=== PATIENT | male | born 1945 | race Caucasian/White ===

== ENCOUNTER 2018-01-10 11:45 | Inpatient (IN) | payer OTHER ==
[2018-01-10] MEDS: LIDOCAINE 2%/EPI MPF (SDV) 20 ML VIAL INJ (19:53)
[2018-01-10] MEDS: morphine 4 MG/ML VIAL IV (20:04)
[2018-01-10] MEDS: ONDANSETRON 4 MG INJ IV (20:04)
[2018-01-10 20:12] LABS: ADD MAN DIFF? NO
[2018-01-10 20:15] LABS: WHITE BLOOD COUNT 7.5 10^3/ul (4.8-10.8)
[2018-01-10 20:15] LABS: BASOPHIL # 0.1 10^3/ul (0.0-0.1); BASOPHILS % 1.2 % (0.0-2.0); EOSINOPHILS # 0.2 10^3/ul (0.0-0.5); EOSINOPHILS % 3.1 % (0.0-7.0); HEMATOCRIT 42.3 % (42.0-52.0); HEMOGLOBIN 13.6 g/dl (14.0-18.0); LYMPHOCYTES # 2.2 10^3/ul (0.8-2.9); LYMPHOCYTES % 29.3 % (15.0-51.0); MEAN CORPUSCULAR HEMOGLOBIN 26.9 pg (29.0-33.0); MEAN CORPUSCULAR HGB CONC 32.2 g/dl (32.0-37.0); MEAN CORPUSCULAR VOLUME 83.8 fl (82.0-101.0); MEAN PLATELET VOLUME 9.3 fl (7.4-10.4); MONOCYTES % 13.4 % (0.0-11.0); NEUTROPHILS % 52.5 % (39.0-77.0); PLATELET COUNT 170 10^3/UL (140-415); RED BLOOD COUNT 5.05 10^6/ul (4.70-6.10); RED CELL DISTRIBUTION WIDTH 17.4 % (11.5-14.5)
[2018-01-10 20:33] LABS: PROTIME 15.4 Sec (11.9-14.9); PT RATIO 1.2
[2018-01-10 20:34] LABS: PARTIAL THROMBOPLASTIN TIME 34.1 Sec (25.0-35.0)
[2018-01-10 20:36] LABS: ALANINE AMINOTRANSFERASE 7 IU/L (13-69); ALBUMIN/GLOBULIN RATIO 0.95; ALKALINE PHOSPHATASE 133 IU/L (42-121); ASPARTATE AMINO TRANSFERASE 29 IU/L (15-46); BILIRUBIN,INDIRECT 0.2 mg/dl (0-1.1); BILIRUBIN,TOTAL 0.2 mg/dl (0.2-1.3); BLOOD UREA NITROGEN 19 mg/dl (7-20); CALCIUM 9.5 mg/dl (8.4-10.2); CARBON DIOXIDE 31 mmol/L (21-31); CHLORIDE 100 mmol/L (97-110); CREATININE 0.84 mg/dl (0.61-1.24); GLUCOSE 149 mg/dl (70-220); LIPASE 333 U/L (23-300); SODIUM 141 mmol/L (135-144); TOTAL PROTEIN 8.2 g/dl (6.1-8.1)
[2018-01-10 20:48] LABS: TROPONIN-I 0.029 ng/ml (0.00-0.12)
[2018-01-10 20:53] LABS: ANION GAP 14 (8-16); POTASSIUM 3.6 mmol/L (3.5-5.1)
[2018-01-10] MEDS: DILTIAZEM 25 MG INJ IV (20:56)
[2018-01-10] MEDS ORDERED: ACETAMINOPHEN 325 MG TAB PO (21:00)
[2018-01-10] MEDS ORDERED: ONDANSETRON 4 MG INJ IV (21:00)
[2018-01-10] MEDS: DILTIAZEM 30 MG TAB PO (21:25)
[2018-01-11] MEDS ORDERED: ONDANSETRON 4 MG INJ IV (01:30)
[2018-01-11] MEDS ORDERED: NACL 0.9% 3 ML SYG IV (01:30)
[2018-01-11] MEDS ORDERED: GLUCOSE GEL 15 GRAM TUBE BUCCAL (02:00)
[2018-01-11] MEDS ORDERED: GLUCOSE GEL 15 GRAM TUBE PO ×2 (02:00)
[2018-01-11] MEDS ORDERED: DEXTROSE 50% 50 ML SYRINGE IV ×2 (02:00)
[2018-01-11] MEDS ORDERED: GLUCAGON 1 MG INJ IM (02:00)
[2018-01-11 02:01] LABS: CREATINE KINASE 67 IU/L (23-200)
[2018-01-11] MEDS: ACCU-CHEK XX (02:05)
[2018-01-11 02:14] LABS: CK INDEX 3.2; TROPONIN-I 0.036 ng/ml (0.00-0.12)
[2018-01-11 02:21] LABS: CK-MB 2.16 ng/ml (0.0-2.4)
[2018-01-11 04:56] LABS: ADD MAN DIFF? NO
[2018-01-11 05:01] LABS: WHITE BLOOD COUNT 8.9 10^3/ul (4.8-10.8)
[2018-01-11 05:02] LABS: BASOPHIL # 0.1 10^3/ul (0.0-0.1); EOSINOPHILS # 0.2 10^3/ul (0.0-0.5); EOSINOPHILS % 1.8 % (0.0-7.0); HEMATOCRIT 43.8 % (42.0-52.0); HEMOGLOBIN 13.7 g/dl (14.0-18.0); LYMPHOCYTES # 1.7 10^3/ul (0.8-2.9); LYMPHOCYTES % 18.8 % (15.0-51.0); MEAN CORPUSCULAR HEMOGLOBIN 26.4 pg (29.0-33.0); MEAN CORPUSCULAR HGB CONC 31.3 g/dl (32.0-37.0); MEAN CORPUSCULAR VOLUME 84.4 fl (82.0-101.0); MEAN PLATELET VOLUME 9.9 fl (7.4-10.4); MONOCYTE # 1.1 10^3/ul (0.3-0.9); MONOCYTES % 12.3 % (0.0-11.0); NEUTROPHIL # 5.8 10^3/ul (1.6-7.5); NEUTROPHILS % 65.9 % (39.0-77.0); PLATELET COUNT 186 10^3/UL (140-415); RED BLOOD COUNT 5.19 10^6/ul (4.70-6.10); RED CELL DISTRIBUTION WIDTH 16.9 % (11.5-14.5)
[2018-01-11 05:42] LABS: CREATINE KINASE 64 IU/L (23-200)
[2018-01-11 05:48] LABS: ALANINE AMINOTRANSFERASE 12 IU/L (13-69); ALBUMIN 3.6 g/dl (3.3-4.9); ALBUMIN/GLOBULIN RATIO 0.97; ALKALINE PHOSPHATASE 119 IU/L (42-121); ANION GAP 15 (8-16); ASPARTATE AMINO TRANSFERASE 26 IU/L (15-46); BILIRUBIN,INDIRECT 0.3 mg/dl (0-1.1); BILIRUBIN,TOTAL 0.3 mg/dl (0.2-1.3); BLOOD UREA NITROGEN 22 mg/dl (7-20); CALCIUM 9.4 mg/dl (8.4-10.2); CARBON DIOXIDE 29 mmol/L (21-31); CHLORIDE 101 mmol/L (97-110); CREATININE 0.88 mg/dl (0.61-1.24); GLUCOSE 140 mg/dl (70-220); MAGNESIUM 1.7 mg/dl (1.7-2.5); POTASSIUM 4.4 mmol/L (3.5-5.1); SODIUM 141 mmol/L (135-144); TOTAL PROTEIN 7.3 g/dl (6.1-8.1)
[2018-01-11 05:54] LABS: CK INDEX 3.1; TROPONIN-I 0.028 ng/ml (0.00-0.12)
[2018-01-11 06:13] LABS: CK-MB 1.97 ng/ml (0.0-2.4)
[2018-01-11] MEDS: FUROSEMIDE 40 MG INJ IV (07:21)
[2018-01-11] MEDS: INSULIN ASPART [NOVOLOG] 3 ML PEN SC ×4 (08:00→21:00)
[2018-01-11] MEDS: FUROSEMIDE 20 MG INJ IV (09:00)
[2018-01-11] MEDS ORDERED: LISINOPRIL PO (09:00)
[2018-01-11] MEDS: ENOXAPARIN 40 MG/0.4 ML SYG SC (09:08)
[2018-01-11] MEDS: METOPROLOL 25 MG TAB PO ×2 (09:08→20:32)
[2018-01-11] MEDS: FAMOTIDINE 20 MG TAB PO ×2 (09:09→20:30)
[2018-01-11] MEDS: INSULIN GLARGINE [LANtus] 3 ML PEN SC (09:13)
[2018-01-11] MEDS: ASPIRIN 81 MG TAB PO (09:51)
[2018-01-11] MEDS: ALBUMIN HUMAN 25% 50 ML IV ×2 (09:51→17:38)
[2018-01-11] MEDS: ATORVASTATIN 20 MG TAB PO (20:30)
[2018-01-11] MEDS: LORAZEPAM 0.5 MG TAB PO (23:33)
[2018-01-12] MEDS: LORAZEPAM 0.5 MG TAB PO ×2 (00:10→11:51)
[2018-01-12] MEDS ORDERED: AMIODARONE 900 MG in DEXTROSE 5% 482 ML IV (01:30)
[2018-01-12] MEDS: AMIODARONE 150MG/D5W BOLUS 100 ML IV ×2 (01:40→02:28)
[2018-01-12] MEDS: ACCU-CHEK XX (02:00)
[2018-01-12] MEDS: AMIODARONE 900 MG in DEXTROSE 5% 482 ML IV (02:58)
[2018-01-12 05:21] LABS: ADD MAN DIFF? NO
[2018-01-12 05:31] LABS: BASOPHIL # 0.1 10^3/ul (0.0-0.1); EOSINOPHILS # 0.1 10^3/ul (0.0-0.5); EOSINOPHILS % 1.3 % (0.0-7.0); HEMATOCRIT 44.9 % (42.0-52.0); HEMOGLOBIN 14.3 g/dl (14.0-18.0); LYMPHOCYTES # 2.4 10^3/ul (0.8-2.9); LYMPHOCYTES % 24.3 % (15.0-51.0); MEAN CORPUSCULAR HEMOGLOBIN 26.5 pg (29.0-33.0); MEAN CORPUSCULAR HGB CONC 31.8 g/dl (32.0-37.0); MEAN CORPUSCULAR VOLUME 83.1 fl (82.0-101.0); MEAN PLATELET VOLUME 9.7 fl (7.4-10.4); MONOCYTE # 1.1 10^3/ul (0.3-0.9); MONOCYTES % 11.2 % (0.0-11.0); NEUTROPHILS % 61.8 % (39.0-77.0); PLATELET COUNT 170 10^3/UL (140-415); RED CELL DISTRIBUTION WIDTH 17.8 % (11.5-14.5)
[2018-01-12 05:31] LABS: WHITE BLOOD COUNT 9.7 10^3/ul (4.8-10.8)
[2018-01-12] MEDS: FUROSEMIDE 40 MG INJ IV (05:49)
[2018-01-12 05:52] LABS: AMMONIA 58 umol/l (9-30)
[2018-01-12 05:54] LABS: CHOLESTEROL 106 mg/dl (100-200)
[2018-01-12 05:54] LABS: CHOL/HDL RATIO 3.9 RATIO; HDL CHOLESTEROL 27 mg/dl (31-75); LDL CHOLESTEROL,CALCULATED 63 mg/dl; TRIGLYCERIDES 80 mg/dl (0-149)
[2018-01-12 05:55] LABS: ANION GAP 15 (8-16); BLOOD UREA NITROGEN 30 mg/dl (7-20); CALCIUM 9.6 mg/dl (8.4-10.2); CARBON DIOXIDE 28 mmol/L (21-31); CHLORIDE 100 mmol/L (97-110); CREATININE 0.98 mg/dl (0.61-1.24); GLUCOSE 126 mg/dl (70-220); MAGNESIUM 1.6 mg/dl (1.7-2.5); PHOSPHORUS 4.4 mg/dl (2.5-4.9); POTASSIUM 4.5 mmol/L (3.5-5.1); SODIUM 138 mmol/L (135-144)
[2018-01-12] MEDS: LEVALBUTEROL (NEB) 0.63 MG/3 ML AMP HHN ×2 (06:15→19:41)
[2018-01-12] MEDS ORDERED: SUCCINYLCHOLINE CHLORIDE 100 MG/5 ML SYG IV (07:00)
[2018-01-12] MEDS: INSULIN ASPART [NOVOLOG] 3 ML PEN SC ×4 (07:52→21:00)
[2018-01-12 08:11] LABS: B-TYPE NATRIURETIC PEPTIDE 5740 PG/ML (0-125)
[2018-01-12 08:43] LABS: ADD UMIC YES; UR ASCORBIC ACID 40 mg/dL (NEGATIVE); UR BACTERIA FEW /HPF (NONE SEEN); UR BILIRUBIN (Dip) 1+ mg/dL (NEGATIVE); UR BLOOD (Dip) NEGATIVE (NEGATIVE); UR CLARITY CLEAR (CLEAR); UR COLOR AMBER (YELLOW); UR GLUCOSE (Dip) NEGATIVE (NEGATIVE); UR HYALINE CAST FEW /HPF (NONE SEEN); UR KETONES (Dip) NEGATIVE (NEGATIVE); UR LEUKOCYTE ESTERASE (Dip) NEGATIVE Leu/ul (NEGATIVE); UR MUCUS FEW /HPF (NONE SEEN); UR NITRITE (Dip) NEGATIVE (NEGATIVE); UR RBC 1 /HPF (0-5); UR TOTAL PROTEIN (Dip) 1+ mg/dl (NEGATIVE); UR UROBILINOGEN (Dip) 2+ mg/dL (NEGATIVE); UR WBC 1 /HPF (0-5)
[2018-01-12] MEDS: MAGNESIUM SULFATE 2 GM/50 ML 50 ML IVPB (08:47)
[2018-01-12] MEDS: FAMOTIDINE 20 MG TAB PO ×2 (08:47→20:20)
[2018-01-12] MEDS: ASPIRIN 81 MG TAB PO (08:47)
[2018-01-12] MEDS: SPIRONOLACTONE 25 MG TAB PO (08:47)
[2018-01-12] MEDS: LACTULOSE 30ML CUP PO ×3 (08:54→22:56)
[2018-01-12] MEDS: ENOXAPARIN 40 MG/0.4 ML SYG SC (08:59)
[2018-01-12] MEDS: INSULIN GLARGINE [LANtus] 3 ML PEN SC (08:59)
[2018-01-12] MEDS: METOPROLOL 25 MG TAB PO ×2 (09:00→11:05)
[2018-01-12 13:15] LABS: HEMOGLOBIN A1C 6.7 % (0-5.9)
[2018-01-12] MEDS: LORAZEPAM 2 MG INJ IV (14:03)
[2018-01-12] MEDS: DIPHENHYDRAMINE 50 MG INJ IV (16:36)
[2018-01-12] MEDS: SOD CHLORIDE 0.9% 1,000 ML IV (18:59)
[2018-01-12 19:01] LABS: AADO2 Arterial 71.8 mmHg (7.0-24.0); Allen Test ACCEPTAB; Arterial Base Excess -16.2 mmol/L (-3.0-3); Arterial COHb 0.8 % (0.0-3.0); Arterial Fraction of Oxyhgb 91.9 % (93.0-99.0); Arterial HCO3 13.4 mmol/L (22.0-26.0); Arterial MetHb 0.4 % (0.0-1.5); Arterial Total Hemglobin 14.8 g/dl (12.0-18.0); Arterial pCO2 45.4 mmhg (35-45); MODE NASAL CANNULA; Site Right Radial
[2018-01-12 19:32] LABS: ADD MAN DIFF? NO
[2018-01-12 19:40] LABS: ABNORMAL IP MESSAGE 1; BASOPHILS % 0.2 % (0.0-2.0); EOSINOPHILS % 0.1 % (0.0-7.0); HEMATOCRIT 45.5 % (42.0-52.0); HEMOGLOBIN 13.8 g/dl (14.0-18.0); LYMPHOCYTES # 0.7 10^3/ul (0.8-2.9); LYMPHOCYTES % 5.6 % (15.0-51.0); MEAN CORPUSCULAR HEMOGLOBIN 26.7 pg (29.0-33.0); MEAN CORPUSCULAR HGB CONC 30.3 g/dl (32.0-37.0); MEAN CORPUSCULAR VOLUME 88.2 fl (82.0-101.0); MEAN PLATELET VOLUME 10.2 fl (7.4-10.4); MONOCYTE # 1.7 10^3/ul (0.3-0.9); MONOCYTES % 13.1 % (0.0-11.0); NEUTROPHIL # 10.3 10^3/ul (1.6-7.5); NEUTROPHILS % 79.6 % (39.0-77.0); NUCLEATED RED BLOOD CELLS% 0.2 /100WBC (0.0-0.0); PLATELET COUNT 190 10^3/UL (140-415); POSITIVE DIFF @See below; RED BLOOD COUNT 5.16 10^6/ul (4.70-6.10); RED CELL DISTRIBUTION WIDTH 17.1 % (11.5-14.5)
[2018-01-12 19:40] LABS: WHITE BLOOD COUNT 12.9 10^3/ul (4.8-10.8)
[2018-01-12] MEDS: IPRATROPIUM (NEB) 0.5 MG/2.5 ML AMP HHN (19:41)
[2018-01-12 19:55] LABS: AMMONIA 178 umol/l (9-30)
[2018-01-12 20:03] LABS: ALANINE AMINOTRANSFERASE 21 IU/L (13-69); ALBUMIN 4.9 g/dl (3.3-4.9); ALBUMIN/GLOBULIN RATIO 1.28; ALKALINE PHOSPHATASE 129 IU/L (42-121); ANION GAP 34 (8-16); BILIRUBIN,INDIRECT 1.1 mg/dl (0-1.1); BLOOD UREA NITROGEN 33 mg/dl (7-20); CALCIUM 9.6 mg/dl (8.4-10.2); CARBON DIOXIDE 16 mmol/L (21-31); CHLORIDE 96 mmol/L (97-110); CREATININE 1.94 mg/dl (0.61-1.24); GLUCOSE 73 mg/dl (70-220); POTASSIUM 4.2 mmol/L (3.5-5.1); SODIUM 142 mmol/L (135-144); TOTAL PROTEIN 8.7 g/dl (6.1-8.1)
[2018-01-12] MEDS: PROPOFOL 100 ML IV ×2 (20:16→21:48)
[2018-01-12] MEDS: NA BICARBONATE 8.4% 50 ML SYG IV (20:17)
[2018-01-12] MEDS: ATORVASTATIN 20 MG TAB PO (20:20)
[2018-01-12 20:23] LABS: ASPARTATE AMINO TRANSFERASE 580 IU/L (15-46)
[2018-01-12] MEDS ORDERED: SODIUM BICARBONATE (IV ADD) 150 MEQ in DEXTROSE 5% 850 ML IV (20:30)
[2018-01-12 20:58] LABS: LACTIC ACID 15.1 mmol/L (0.5-2.0)
[2018-01-12 21:34] LABS: AADO2 Arterial 383.9 mmHg (7.0-24.0); Allen Test ACCEPTAB; Arterial Base Excess -9.8 mmol/L (-3.0-3); Arterial Blood Gas Oxygen Sat 99.5 mmHG (95.0-100.0); Arterial COHb 0.5 % (0.0-3.0); Arterial Fraction of Oxyhgb 98.5 % (93.0-99.0); Arterial HCO3 17.4 mmol/L (22.0-26.0); Arterial MetHb 0.5 % (0.0-1.5); Arterial Total Hemglobin 13.9 g/dl (12.0-18.0); Arterial pCO2 42.7 mmhg (35-45); MODE VENT - AC; Site Right Radial
[2018-01-12 21:48] LABS: B-TYPE NATRIURETIC PEPTIDE 13500 PG/ML (0-125)
[2018-01-12] MEDS ORDERED: LORAZEPAM 2 MG INJ IV (22:00)
[2018-01-12] MEDS: DIGOXIN 500 MCG INJ IV (22:54)
[2018-01-12] MEDS: SODIUM BICARBONATE (IV ADD) 150 MEQ in DEXTROSE 5% 850 ML IV (23:18)
[2018-01-13] MEDS: ACCU-CHEK XX (02:00)
[2018-01-13] MEDS: PROPOFOL 100 ML IV ×3 (03:44→16:50)
[2018-01-13] MEDS: AMIODARONE 900 MG in DEXTROSE 5% 482 ML IV (03:51)
[2018-01-13] MEDS: LACTULOSE 30ML CUP PO ×3 (05:24→21:30)
[2018-01-13] MEDS: FUROSEMIDE 40 MG INJ IV ×2 (05:24→13:58)
[2018-01-13] MEDS: FAMOTIDINE 20 MG INJ IV ×2 (05:24→08:50)
[2018-01-13 05:48] LABS: ADD MAN DIFF? NO
[2018-01-13 05:55] LABS: WHITE BLOOD COUNT 13.5 10^3/ul (4.8-10.8)
[2018-01-13 05:55] LABS: BASOPHILS % 0.1 % (0.0-2.0); HEMATOCRIT 36.7 % (42.0-52.0); HEMOGLOBIN 12.3 g/dl (14.0-18.0); LYMPHOCYTES # 1.3 10^3/ul (0.8-2.9); LYMPHOCYTES % 9.5 % (15.0-51.0); MEAN CORPUSCULAR HEMOGLOBIN 27.3 pg (29.0-33.0); MEAN CORPUSCULAR HGB CONC 33.5 g/dl (32.0-37.0); MEAN CORPUSCULAR VOLUME 81.6 fl (82.0-101.0); MEAN PLATELET VOLUME 10.2 fl (7.4-10.4); MONOCYTE # 0.9 10^3/ul (0.3-0.9); MONOCYTES % 6.4 % (0.0-11.0); NEUTROPHIL # 11.3 10^3/ul (1.6-7.5); NEUTROPHILS % 83.3 % (39.0-77.0); NUCLEATED RED BLOOD CELLS% 0.2 /100WBC (0.0-0.0); PLATELET COUNT 180 10^3/UL (140-415); RED CELL DISTRIBUTION WIDTH 17.6 % (11.5-14.5)
[2018-01-13 06:09] LABS: CREATINE KINASE 180 IU/L (23-200)
[2018-01-13 06:13] LABS: ALBUMIN 3.5 g/dl (3.3-4.9); ANION GAP 20 (8-16); BLOOD UREA NITROGEN 45 mg/dl (7-20); CALCIUM 8.8 mg/dl (8.4-10.2); CARBON DIOXIDE 25 mmol/L (21-31); CHLORIDE 96 mmol/L (97-110); CREATININE 1.62 mg/dl (0.61-1.24); GLUCOSE 220 mg/dl (70-220); MAGNESIUM 1.9 mg/dl (1.7-2.5); PHOSPHORUS 4.7 mg/dl (2.5-4.9); POTASSIUM 4.1 mmol/L (3.5-5.1); SODIUM 137 mmol/L (135-144)
[2018-01-13 06:21] LABS: AMMONIA 36 umol/l (9-30)
[2018-01-13 06:23] LABS: CK INDEX 3.1; TROPONIN-I 0.073 ng/ml (0.00-0.12)
[2018-01-13 06:29] LABS: CK-MB 5.56 ng/ml (0.0-2.4)
[2018-01-13 07:49] LABS: AADO2 Arterial 239.3 mmHg (7.0-24.0); Allen Test ACCEPTAB; Arterial Base Excess 4.2 mmol/L (-3.0-3); Arterial Blood Gas Oxygen Sat 95.7 mmHG (95.0-100.0); Arterial COHb 0.3 % (0.0-3.0); Arterial Fraction of Oxyhgb 95.1 % (93.0-99.0); Arterial HCO3 26.9 mmol/L (22.0-26.0); Arterial MetHb 0.3 % (0.0-1.5); Arterial Total Hemglobin 13.7 g/dl (12.0-18.0); Arterial pCO2 34.3 mmhg (35-45); MODE VENT - AC; Site Right Radial
[2018-01-13] MEDS: SPIRONOLACTONE 25 MG TAB PO (08:48)
[2018-01-13] MEDS: ENOXAPARIN 80 MG/0.8 ML SYG SC (08:52)
[2018-01-13] MEDS: INSULIN ASPART [NOVOLOG] 3 ML PEN SC ×4 (08:52→21:31)
[2018-01-13] MEDS: INSULIN GLARGINE [LANtus] 3 ML PEN SC (08:53)
[2018-01-13] MEDS: PIPER-TAZO 3.375 GM IV (PMX) 100 ML IVPB ×2 (10:16→13:58)
[2018-01-13] MEDS ORDERED: MAGNESIUM SULFATE 1 GM/D5W 100 ML IVPB (11:30)
[2018-01-13 11:45] LABS: LACTIC ACID 3.6 mmol/L (0.5-2.0)
[2018-01-13] MEDS: MAGNESIUM SULFATE 1 GM/D5W 100 ML IVPB (11:49)
[2018-01-13] MEDS ORDERED: VANCOMYCIN IV PER PHARMACY XX (15:30)
[2018-01-13 16:33] LABS: LACTIC ACID 2.5 mmol/L (0.5-2.0)
[2018-01-13] MEDS: VANCOMYCIN 2 GM in DEXTROSE 5% 500 ML IVPB (17:44)
[2018-01-13] MEDS: LEVALBUTEROL (HFA) 15 GM INHALER INH (20:30)
[2018-01-13] MEDS: IPRATROPIUM (HFA) 12.9 GM INHALER INH (21:13)
[2018-01-13] MEDS: CEFEPIME 2GM/50 ML (PMX) 50 ML IVPB (21:30)
[2018-01-14] MEDS: PROPOFOL 100 ML IV ×4 (01:15→21:09)
[2018-01-14] MEDS: LEVALBUTEROL (HFA) 15 GM INHALER INH ×4 (01:34→19:48)
[2018-01-14] MEDS: IPRATROPIUM (HFA) 12.9 GM INHALER INH ×4 (01:34→19:49)
[2018-01-14] MEDS: ACCU-CHEK XX (02:00)
[2018-01-14 05:46] LABS: ADD MAN DIFF? NO
[2018-01-14 05:51] LABS: BASOPHILS % 0.2 % (0.0-2.0); EOSINOPHILS % 0.1 % (0.0-7.0); HEMATOCRIT 37.2 % (42.0-52.0); HEMOGLOBIN 12.5 g/dl (14.0-18.0); LYMPHOCYTES # 1.4 10^3/ul (0.8-2.9); LYMPHOCYTES % 10.1 % (15.0-51.0); MEAN CORPUSCULAR HGB CONC 33.6 g/dl (32.0-37.0); MEAN CORPUSCULAR VOLUME 80.3 fl (82.0-101.0); MEAN PLATELET VOLUME 9.9 fl (7.4-10.4); MONOCYTE # 0.7 10^3/ul (0.3-0.9); MONOCYTES % 5.2 % (0.0-11.0); NEUTROPHIL # 11.3 10^3/ul (1.6-7.5); NUCLEATED RED BLOOD CELLS # 0.1 10^3/ul (0.0-0.0); NUCLEATED RED BLOOD CELLS% 0.4 /100WBC (0.0-0.0); PLATELET COUNT 216 10^3/UL (140-415); RED BLOOD COUNT 4.63 10^6/ul (4.70-6.10); RED CELL DISTRIBUTION WIDTH 18.1 % (11.5-14.5)
[2018-01-14 05:51] LABS: WHITE BLOOD COUNT 13.5 10^3/ul (4.8-10.8)
[2018-01-14] MEDS: FUROSEMIDE 40 MG INJ IV ×2 (05:53→18:00)
[2018-01-14] MEDS: LACTULOSE 30ML CUP PO ×3 (05:53→22:02)
[2018-01-14 06:11] LABS: ANION GAP 9 (8-16); BLOOD UREA NITROGEN 50 mg/dl (7-20); CALCIUM 8.9 mg/dl (8.4-10.2); CARBON DIOXIDE 34 mmol/L (21-31); CHLORIDE 97 mmol/L (97-110); CREATININE 1.26 mg/dl (0.61-1.24); GLUCOSE 133 mg/dl (70-220); MAGNESIUM 2.1 mg/dl (1.7-2.5); PHOSPHORUS 2.2 mg/dl (2.5-4.9); POTASSIUM 3.4 mmol/L (3.5-5.1); SODIUM 137 mmol/L (135-144)
[2018-01-14] MEDS: INSULIN ASPART [NOVOLOG] 3 ML PEN SC ×4 (07:35→21:00)
[2018-01-14 07:56] LABS: AADO2 Arterial 207.1 mmHg (7.0-24.0); Allen Test ACCEPTAB; Arterial Base Excess 9.2 mmol/L (-3.0-3); Arterial Blood Gas Oxygen Sat 97.7 mmHG (95.0-100.0); Arterial COHb 0.2 % (0.0-3.0); Arterial Fraction of Oxyhgb 97.2 % (93.0-99.0); Arterial HCO3 33.1 mmol/L (22.0-26.0); Arterial MetHb 0.3 % (0.0-1.5); Arterial Total Hemglobin 14.1 g/dl (12.0-18.0); Arterial pCO2 41.8 mmhg (35-45); MODE VENT - AC; Site Right Radial
[2018-01-14] MEDS: INSULIN GLARGINE [LANtus] 3 ML PEN SC (08:02)
[2018-01-14] MEDS: ENOXAPARIN 80 MG/0.8 ML SYG SC (08:52)
[2018-01-14] MEDS: FAMOTIDINE 20 MG INJ IV (08:52)
[2018-01-14] MEDS: SPIRONOLACTONE 25 MG TAB PO (08:52)
[2018-01-14] MEDS: CEFEPIME 2GM/50 ML (PMX) 50 ML IVPB ×2 (08:55→21:04)
[2018-01-14] MEDS ORDERED: VANCOMYCIN 1 GM 250 ML IVPB (18:00)
[2018-01-14] MEDS ORDERED: VANCOMYCIN 1.25 GM in SOD CHLORIDE 0.9% 250 ML IVPB (18:00)
[2018-01-14] MEDS: POTASSIUM PHOSPHATE 20 MEQ in SOD CHLORIDE 0.9% 250 ML IVPB (20:19)
[2018-01-15] MEDS: ACCU-CHEK XX (02:00)
[2018-01-15] MEDS: LEVALBUTEROL (HFA) 15 GM INHALER INH ×4 (02:00→19:36)
[2018-01-15] MEDS: IPRATROPIUM (HFA) 12.9 GM INHALER INH ×4 (02:00→19:36)
[2018-01-15] MEDS: PROPOFOL 100 ML IV ×4 (02:18→23:21)
[2018-01-15 04:24] LABS: ADD MAN DIFF? NO
[2018-01-15 04:36] LABS: BASOPHILS % 0.3 % (0.0-2.0); EOSINOPHILS # 0.1 10^3/ul (0.0-0.5); EOSINOPHILS % 1.3 % (0.0-7.0); HEMATOCRIT 41.4 % (42.0-52.0); HEMOGLOBIN 13.4 g/dl (14.0-18.0); LYMPHOCYTES # 1.3 10^3/ul (0.8-2.9); LYMPHOCYTES % 15.5 % (15.0-51.0); MEAN CORPUSCULAR HEMOGLOBIN 26.9 pg (29.0-33.0); MEAN CORPUSCULAR HGB CONC 32.4 g/dl (32.0-37.0); MEAN PLATELET VOLUME 10.5 fl (7.4-10.4); MONOCYTE # 0.8 10^3/ul (0.3-0.9); MONOCYTES % 9.4 % (0.0-11.0); NEUTROPHIL # 6.3 10^3/ul (1.6-7.5); NUCLEATED RED BLOOD CELLS # 0.1 10^3/ul (0.0-0.0); NUCLEATED RED BLOOD CELLS% 0.7 /100WBC (0.0-0.0); PLATELET COUNT 182 10^3/UL (140-415); POSITIVE DIFF @See below; RED BLOOD COUNT 4.99 10^6/ul (4.70-6.10); RED CELL DISTRIBUTION WIDTH 18.6 % (11.5-14.5)
[2018-01-15 04:49] LABS: ALANINE AMINOTRANSFERASE 22 IU/L (13-69); ALBUMIN 3.3 g/dl (3.3-4.9); ALBUMIN/GLOBULIN RATIO 0.97; ALKALINE PHOSPHATASE 110 IU/L (42-121); ANION GAP 11 (8-16); BILIRUBIN,INDIRECT 0.4 mg/dl (0-1.1); BILIRUBIN,TOTAL 0.4 mg/dl (0.2-1.3); BLOOD UREA NITROGEN 30 mg/dl (7-20); CALCIUM 8.7 mg/dl (8.4-10.2); CARBON DIOXIDE 35 mmol/L (21-31); CHLORIDE 100 mmol/L (97-110); CREATININE 0.82 mg/dl (0.61-1.24); GLUCOSE 139 mg/dl (70-220); POTASSIUM 3.4 mmol/L (3.5-5.1); SODIUM 143 mmol/L (135-144); TOTAL PROTEIN 6.7 g/dl (6.1-8.1)
[2018-01-15 04:59] LABS: ASPARTATE AMINO TRANSFERASE 779 IU/L (15-46)
[2018-01-15 05:05] LABS: AADO2 Arterial 74.9 mmHg (7.0-24.0); Allen Test ACCEPTAB; Arterial Blood Gas Oxygen Sat 96.1 mmHG (95.0-100.0); Arterial COHb 0.7 % (0.0-3.0); Arterial Fraction of Oxyhgb 95.1 % (93.0-99.0); Arterial MetHb 0.3 % (0.0-1.5); Arterial Total Hemglobin 14.1 g/dl (12.0-18.0); MODE VENT - AC; Site Right Radial
[2018-01-15 05:14] LABS: WHITE BLOOD COUNT 8.6 10^3/ul (4.8-10.8)
[2018-01-15] MEDS: LACTULOSE 30ML CUP PO ×2 (06:15→20:25)
[2018-01-15] MEDS: FUROSEMIDE 40 MG INJ IV ×2 (06:15→18:00)
[2018-01-15] MEDS: INSULIN ASPART [NOVOLOG] 3 ML PEN SC ×4 (07:35→20:22)
[2018-01-15] MEDS: INSULIN GLARGINE [LANtus] 3 ML PEN SC (07:53)
[2018-01-15] MEDS: FAMOTIDINE 20 MG INJ IV (08:29)
[2018-01-15] MEDS: CEFEPIME 2GM/50 ML (PMX) 50 ML IVPB ×2 (08:30→20:25)
[2018-01-15] MEDS: SPIRONOLACTONE 25 MG TAB PO (08:30)
[2018-01-15] MEDS: ENOXAPARIN 80 MG/0.8 ML SYG SC (08:31)
[2018-01-15] MEDS: POTASSIUM CHLORIDE 20 MEQ POWDER FOR ORAL SOLN NGT (09:36)
[2018-01-16] MEDS: IPRATROPIUM (HFA) 12.9 GM INHALER INH ×2 (01:52→07:27)
[2018-01-16] MEDS: LEVALBUTEROL (HFA) 15 GM INHALER INH ×2 (01:53→07:27)
[2018-01-16] MEDS: ACCU-CHEK XX (01:59)
[2018-01-16] MEDS: DEXMEDETOMIDINE HCL 200 MCG in SOD CHLORIDE 0.9% 48 ML IV ×4 (04:01→10:00)
[2018-01-16 04:56] LABS: ADD MAN DIFF? NO
[2018-01-16 05:06] LABS: BASOPHILS % 0.4 % (0.0-2.0); EOSINOPHILS # 0.1 10^3/ul (0.0-0.5); EOSINOPHILS % 1.4 % (0.0-7.0); HEMATOCRIT 42.8 % (42.0-52.0); LYMPHOCYTES # 1.7 10^3/ul (0.8-2.9); LYMPHOCYTES % 18.9 % (15.0-51.0); MEAN CORPUSCULAR HEMOGLOBIN 26.8 pg (29.0-33.0); MEAN CORPUSCULAR HGB CONC 32.7 g/dl (32.0-37.0); MEAN PLATELET VOLUME 9.9 fl (7.4-10.4); MONOCYTES % 10.5 % (0.0-11.0); NEUTROPHIL # 6.2 10^3/ul (1.6-7.5); NEUTROPHILS % 68.1 % (39.0-77.0); NUCLEATED RED BLOOD CELLS% 0.2 /100WBC (0.0-0.0); PLATELET COUNT 215 10^3/UL (140-415); RED BLOOD COUNT 5.22 10^6/ul (4.70-6.10); RED CELL DISTRIBUTION WIDTH 17.8 % (11.5-14.5)
[2018-01-16 05:06] LABS: WHITE BLOOD COUNT 9.1 10^3/ul (4.8-10.8)
[2018-01-16 05:26] LABS: LACTIC ACID 1.6 mmol/L (0.5-2.0)
[2018-01-16 05:32] LABS: ANION GAP 12 (8-16); BLOOD UREA NITROGEN 23 mg/dl (7-20); CALCIUM 8.9 mg/dl (8.4-10.2); CARBON DIOXIDE 36 mmol/L (21-31); CHLORIDE 98 mmol/L (97-110); CREATININE 0.79 mg/dl (0.61-1.24); GLUCOSE 125 mg/dl (70-220); MAGNESIUM 1.6 mg/dl (1.7-2.5); POTASSIUM 3.4 mmol/L (3.5-5.1); SODIUM 143 mmol/L (135-144)
[2018-01-16] MEDS: FUROSEMIDE 40 MG INJ IV ×2 (05:56→19:48)
[2018-01-16] MEDS: LORAZEPAM 2 MG INJ IV (07:31)
[2018-01-16] MEDS: INSULIN ASPART [NOVOLOG] 3 ML PEN SC ×4 (07:35→21:00)
[2018-01-16] MEDS: MAGNESIUM SULFATE 2 GM/50 ML 50 ML IVPB (07:44)
[2018-01-16] MEDS: INSULIN GLARGINE [LANtus] 3 ML PEN SC (07:50)
[2018-01-16] MEDS: CEFEPIME 2GM/50 ML (PMX) 50 ML IVPB ×2 (08:30→20:50)
[2018-01-16] MEDS: FAMOTIDINE 20 MG INJ IV (08:30)
[2018-01-16] MEDS: LACTULOSE 30ML CUP PO ×2 (09:31→21:00)
[2018-01-16] MEDS: ENOXAPARIN 80 MG/0.8 ML SYG SC (09:33)
[2018-01-16] MEDS: SPIRONOLACTONE 25 MG TAB PO (09:37)
[2018-01-16] MEDS: POTASSIUM CHLORIDE 100 ML IVPB ×2 (11:26→13:30)
[2018-01-16] MEDS: DIPHENHYDRAMINE 50 MG INJ IV (19:48)
[2018-01-16] MEDS: IPRATROPIUM (NEB) 0.5 MG/2.5 ML AMP HHN (19:55)
[2018-01-16] MEDS: LEVALBUTEROL (NEB) 0.63 MG/3 ML AMP HHN (19:55)
[2018-01-17] MEDS: ACCU-CHEK XX (02:00)
[2018-01-17] MEDS: IPRATROPIUM (NEB) 0.5 MG/2.5 ML AMP HHN ×4 (02:33→19:52)
[2018-01-17] MEDS: LEVALBUTEROL (NEB) 0.63 MG/3 ML AMP HHN ×4 (02:34→19:53)
[2018-01-17 05:44] LABS: ADD MAN DIFF? NO
[2018-01-17] MEDS: FUROSEMIDE 40 MG INJ IV ×2 (05:57→17:04)
[2018-01-17 05:58] LABS: WHITE BLOOD COUNT 10.7 10^3/ul (4.8-10.8)
[2018-01-17 05:58] LABS: BASOPHIL # 0.1 10^3/ul (0.0-0.1); BASOPHILS % 0.6 % (0.0-2.0); EOSINOPHILS # 0.1 10^3/ul (0.0-0.5); HEMATOCRIT 46.4 % (42.0-52.0); HEMOGLOBIN 14.5 g/dl (14.0-18.0); LYMPHOCYTES # 2.6 10^3/ul (0.8-2.9); LYMPHOCYTES % 24.7 % (15.0-51.0); MEAN CORPUSCULAR HEMOGLOBIN 26.2 pg (29.0-33.0); MEAN CORPUSCULAR HGB CONC 31.3 g/dl (32.0-37.0); MEAN CORPUSCULAR VOLUME 83.8 fl (82.0-101.0); MONOCYTE # 1.4 10^3/ul (0.3-0.9); MONOCYTES % 13.2 % (0.0-11.0); NEUTROPHIL # 6.4 10^3/ul (1.6-7.5); NEUTROPHILS % 59.5 % (39.0-77.0); PLATELET COUNT 225 10^3/UL (140-415); RED BLOOD COUNT 5.54 10^6/ul (4.70-6.10); RED CELL DISTRIBUTION WIDTH 17.5 % (11.5-14.5)
[2018-01-17 06:17] LABS: ALANINE AMINOTRANSFERASE 21 IU/L (13-69); ALBUMIN 3.9 g/dl (3.3-4.9); ALBUMIN/GLOBULIN RATIO 0.86; ALKALINE PHOSPHATASE 126 IU/L (42-121); ANION GAP 13 (8-16); ASPARTATE AMINO TRANSFERASE 329 IU/L (15-46); BILIRUBIN,INDIRECT 1.1 mg/dl (0-1.1); BILIRUBIN,TOTAL 1.2 mg/dl (0.2-1.3); BLOOD UREA NITROGEN 31 mg/dl (7-20); CALCIUM 9.5 mg/dl (8.4-10.2); CARBON DIOXIDE 35 mmol/L (21-31); CHLORIDE 100 mmol/L (97-110); CREATININE 0.91 mg/dl (0.61-1.24); GLUCOSE 81 mg/dl (70-220); SODIUM 144 mmol/L (135-144); TOTAL PROTEIN 8.4 g/dl (6.1-8.1)
[2018-01-17] MEDS: INSULIN ASPART [NOVOLOG] 3 ML PEN SC ×4 (07:35→20:43)
[2018-01-17] MEDS: FAMOTIDINE 20 MG INJ IV (08:23)
[2018-01-17] MEDS: CEFEPIME 2GM/50 ML (PMX) 50 ML IVPB ×2 (08:23→22:30)
[2018-01-17] MEDS: SPIRONOLACTONE 25 MG TAB PO (08:23)
[2018-01-17] MEDS: LACTULOSE 30ML CUP PO ×2 (08:24→20:43)
[2018-01-17] MEDS: ENOXAPARIN 80 MG/0.8 ML SYG SC (08:27)
[2018-01-17] MEDS: INSULIN GLARGINE [LANtus] 3 ML PEN SC (08:33)
[2018-01-17] MEDS: METOPROLOL 5 MG INJ IV (11:51)
[2018-01-17] MEDS: ACETAMINOPHEN 325 MG TAB PO (13:54)
[2018-01-17] MEDS: METOPROLOL 25 MG TAB PO (20:43)
[2018-01-18] MEDS: ACETAMINOPHEN 325 MG TAB PO (00:34)
[2018-01-18] MEDS: LEVALBUTEROL (NEB) 0.63 MG/3 ML AMP HHN ×4 (01:41→20:06)
[2018-01-18] MEDS: IPRATROPIUM (NEB) 0.5 MG/2.5 ML AMP HHN ×4 (01:41→20:05)
[2018-01-18] MEDS: ACCU-CHEK XX (02:00)
[2018-01-18] MEDS: FUROSEMIDE 40 MG INJ IV ×2 (05:33→17:03)
[2018-01-18 07:21] LABS: ADD MAN DIFF? NO
[2018-01-18 07:27] LABS: ABNORMAL IP MESSAGE 1; BASOPHIL # 0.1 10^3/ul (0.0-0.1); BASOPHILS % 0.5 % (0.0-2.0); EOSINOPHILS # 0.3 10^3/ul (0.0-0.5); EOSINOPHILS % 2.7 % (0.0-7.0); HEMATOCRIT 43.7 % (42.0-52.0); HEMOGLOBIN 13.7 g/dl (14.0-18.0); LYMPHOCYTES # 2.2 10^3/ul (0.8-2.9); LYMPHOCYTES % 19.7 % (15.0-51.0); MEAN CORPUSCULAR HEMOGLOBIN 26.1 pg (29.0-33.0); MEAN CORPUSCULAR HGB CONC 31.4 g/dl (32.0-37.0); MEAN CORPUSCULAR VOLUME 83.4 fl (82.0-101.0); MEAN PLATELET VOLUME 9.7 fl (7.4-10.4); MONOCYTE # 1.6 10^3/ul (0.3-0.9); MONOCYTES % 14.6 % (0.0-11.0); NEUTROPHIL # 6.8 10^3/ul (1.6-7.5); NEUTROPHILS % 61.5 % (39.0-77.0); PLATELET COUNT 217 10^3/UL (140-415); POSITIVE DIFF @See below; RED BLOOD COUNT 5.24 10^6/ul (4.70-6.10); RED CELL DISTRIBUTION WIDTH 17.1 % (11.5-14.5)
[2018-01-18 07:43] LABS: ALANINE AMINOTRANSFERASE 14 IU/L (13-69); ALBUMIN 3.7 g/dl (3.3-4.9); ALBUMIN/GLOBULIN RATIO 0.84; ALKALINE PHOSPHATASE 122 IU/L (42-121); ANION GAP 10 (8-16); ASPARTATE AMINO TRANSFERASE 171 IU/L (15-46); BILIRUBIN,INDIRECT 1.1 mg/dl (0-1.1); BILIRUBIN,TOTAL 1.1 mg/dl (0.2-1.3); BLOOD UREA NITROGEN 32 mg/dl (7-20); CALCIUM 9.4 mg/dl (8.4-10.2); CARBON DIOXIDE 37 mmol/L (21-31); CHLORIDE 96 mmol/L (97-110); CREATININE 0.86 mg/dl (0.61-1.24); GLUCOSE 90 mg/dl (70-220); MAGNESIUM 1.7 mg/dl (1.7-2.5); POTASSIUM 3.4 mmol/L (3.5-5.1); SODIUM 140 mmol/L (135-144); TOTAL PROTEIN 8.1 g/dl (6.1-8.1)
[2018-01-18] MEDS: INSULIN ASPART [NOVOLOG] 3 ML PEN SC ×4 (07:55→21:00)
[2018-01-18] MEDS: METOPROLOL 25 MG TAB PO ×2 (08:14→23:41)
[2018-01-18] MEDS: LACTULOSE 30ML CUP PO ×2 (08:14→23:40)
[2018-01-18] MEDS: SPIRONOLACTONE 25 MG TAB PO (08:14)
[2018-01-18] MEDS: FAMOTIDINE 20 MG INJ IV (08:15)
[2018-01-18] MEDS: ENOXAPARIN 80 MG/0.8 ML SYG SC (08:16)
[2018-01-18] MEDS: INSULIN GLARGINE [LANtus] 3 ML PEN SC (08:16)
[2018-01-18] MEDS: POTASSIUM CHLORIDE (SR) 20 MEQ TAB PO (10:29)
[2018-01-18] MEDS: METOPROLOL 5 MG INJ IV (18:44)
[2018-01-18] MEDS: morphine 2 MG INJ IV (21:00)
[2018-01-18] MEDS: DIPHENHYDRAMINE 50 MG INJ IV (21:04)
[2018-01-18] MEDS: HALOPERIDOL 5 MG INJ IV (21:05)
[2018-01-19] MEDS: LEVALBUTEROL (NEB) 0.63 MG/3 ML AMP HHN ×4 (01:48→19:49)
[2018-01-19] MEDS: IPRATROPIUM (NEB) 0.5 MG/2.5 ML AMP HHN ×4 (01:48→19:49)
[2018-01-19] MEDS: LORAZEPAM 2 MG INJ IV (02:36)
[2018-01-19] MEDS: ACCU-CHEK XX (02:48)
[2018-01-19] MEDS: FUROSEMIDE 40 MG INJ IV ×2 (05:54→17:56)
[2018-01-19 07:09] LABS: ADD MAN DIFF? NO
[2018-01-19 07:12] LABS: ABNORMAL IP MESSAGE 1; BASOPHIL # 0.1 10^3/ul (0.0-0.1); BASOPHILS % 0.6 % (0.0-2.0); EOSINOPHILS # 0.4 10^3/ul (0.0-0.5); EOSINOPHILS % 3.6 % (0.0-7.0); HEMATOCRIT 40.2 % (42.0-52.0); HEMOGLOBIN 12.7 g/dl (14.0-18.0); LYMPHOCYTES # 2.3 10^3/ul (0.8-2.9); LYMPHOCYTES % 23.7 % (15.0-51.0); MEAN CORPUSCULAR HEMOGLOBIN 26.3 pg (29.0-33.0); MEAN CORPUSCULAR HGB CONC 31.6 g/dl (32.0-37.0); MEAN CORPUSCULAR VOLUME 83.4 fl (82.0-101.0); MEAN PLATELET VOLUME 9.6 fl (7.4-10.4); MONOCYTE # 1.5 10^3/ul (0.3-0.9); MONOCYTES % 15.9 % (0.0-11.0); NEUTROPHIL # 5.3 10^3/ul (1.6-7.5); NEUTROPHILS % 55.3 % (39.0-77.0); PLATELET COUNT 229 10^3/UL (140-415); POSITIVE DIFF @See below; RED BLOOD COUNT 4.82 10^6/ul (4.70-6.10)
[2018-01-19 07:12] LABS: WHITE BLOOD COUNT 9.7 10^3/ul (4.8-10.8)
[2018-01-19 07:32] LABS: ALANINE AMINOTRANSFERASE 19 IU/L (13-69); ALBUMIN 3.9 g/dl (3.3-4.9); ALBUMIN/GLOBULIN RATIO 1.02; ALKALINE PHOSPHATASE 118 IU/L (42-121); ANION GAP 14 (8-16); ASPARTATE AMINO TRANSFERASE 103 IU/L (15-46); BILIRUBIN,INDIRECT 0.6 mg/dl (0-1.1); BILIRUBIN,TOTAL 0.6 mg/dl (0.2-1.3); BLOOD UREA NITROGEN 26 mg/dl (7-20); CALCIUM 9.3 mg/dl (8.4-10.2); CARBON DIOXIDE 35 mmol/L (21-31); CHLORIDE 99 mmol/L (97-110); CREATININE 0.84 mg/dl (0.61-1.24); GLUCOSE 105 mg/dl (70-220); MAGNESIUM 1.7 mg/dl (1.7-2.5); POTASSIUM 3.4 mmol/L (3.5-5.1); SODIUM 145 mmol/L (135-144); TOTAL PROTEIN 7.7 g/dl (6.1-8.1)
[2018-01-19] MEDS: INSULIN ASPART [NOVOLOG] 3 ML PEN SC ×4 (07:55→21:00)
[2018-01-19] MEDS: INSULIN GLARGINE [LANtus] 3 ML PEN SC (08:51)
[2018-01-19] MEDS: METOPROLOL 25 MG TAB PO ×2 (10:15→21:16)
[2018-01-19] MEDS: LACTULOSE 30ML CUP PO ×2 (10:15→21:16)
[2018-01-19] MEDS: FAMOTIDINE 20 MG INJ IV (10:16)
[2018-01-19] MEDS: SPIRONOLACTONE 25 MG TAB PO (10:16)
[2018-01-19] MEDS: APIXABAN 5 MG TABLET PO (10:16)
[2018-01-19] MEDS: POTASSIUM CHLORIDE (SR) 20 MEQ TAB PO (12:19)
[2018-01-20] MEDS: LEVALBUTEROL (NEB) 0.63 MG/3 ML AMP HHN ×4 (01:50→19:58)
[2018-01-20] MEDS: IPRATROPIUM (NEB) 0.5 MG/2.5 ML AMP HHN ×4 (01:51→19:58)
[2018-01-20] MEDS: ACCU-CHEK XX (02:00)
[2018-01-20] MEDS: FUROSEMIDE 40 MG INJ IV ×2 (05:34→18:12)
[2018-01-20] MEDS: INSULIN ASPART [NOVOLOG] 3 ML PEN SC ×4 (07:55→21:00)
[2018-01-20] MEDS: METOPROLOL 25 MG TAB PO ×2 (08:05→21:11)
[2018-01-20] MEDS: LACTULOSE 30ML CUP PO ×2 (08:05→21:11)
[2018-01-20] MEDS: SPIRONOLACTONE 25 MG TAB PO (08:05)
[2018-01-20] MEDS: FAMOTIDINE 20 MG INJ IV (08:06)
[2018-01-20] MEDS: LISINOPRIL 5 MG TAB PO (08:10)
[2018-01-20] MEDS: INSULIN GLARGINE [LANtus] 3 ML PEN SC (12:55)
[2018-01-21] MEDS: IPRATROPIUM (NEB) 0.5 MG/2.5 ML AMP HHN ×4 (00:30→19:23)
[2018-01-21] MEDS: LEVALBUTEROL (NEB) 0.63 MG/3 ML AMP HHN ×4 (00:30→19:22)
[2018-01-21] MEDS: APIXABAN 5 MG TABLET PO ×3 (01:33→20:48)
[2018-01-21] MEDS: ACCU-CHEK XX (02:00)
[2018-01-21] MEDS: FUROSEMIDE 40 MG INJ IV (05:50)
[2018-01-21 07:54] LABS: ALANINE AMINOTRANSFERASE 15 IU/L (13-69); ALBUMIN 4.4 g/dl (3.3-4.9); ALBUMIN/GLOBULIN RATIO 1.04; ALKALINE PHOSPHATASE 134 IU/L (42-121); ANION GAP 19 (8-16); ASPARTATE AMINO TRANSFERASE 64 IU/L (15-46); BILIRUBIN,INDIRECT 0.4 mg/dl (0-1.1); BILIRUBIN,TOTAL 0.4 mg/dl (0.2-1.3); BLOOD UREA NITROGEN 25 mg/dl (7-20); CALCIUM 9.6 mg/dl (8.4-10.2); CARBON DIOXIDE 31 mmol/L (21-31); CHLORIDE 100 mmol/L (97-110); CREATININE 0.86 mg/dl (0.61-1.24); GLUCOSE 102 mg/dl (70-220); MAGNESIUM 1.7 mg/dl (1.7-2.5); POTASSIUM 3.9 mmol/L (3.5-5.1); SODIUM 146 mmol/L (135-144); TOTAL PROTEIN 8.6 g/dl (6.1-8.1)
[2018-01-21] MEDS: INSULIN ASPART [NOVOLOG] 3 ML PEN SC ×4 (07:55→20:53)
[2018-01-21] MEDS: INSULIN GLARGINE [LANtus] 3 ML PEN SC (08:26)
[2018-01-21] MEDS: LACTULOSE 30ML CUP PO ×2 (08:27→20:48)
[2018-01-21] MEDS: LISINOPRIL 5 MG TAB PO (08:27)
[2018-01-21] MEDS: METOPROLOL 25 MG TAB PO ×2 (08:28→20:48)
[2018-01-21] MEDS: FAMOTIDINE 20 MG INJ IV (08:28)
[2018-01-21] MEDS: SPIRONOLACTONE 25 MG TAB PO (08:28)
[2018-01-21] MEDS: METOPROLOL 5 MG INJ IV (11:44)
[2018-01-21] MEDS: DIPHENHYDRAMINE 50 MG INJ IV (11:45)
[2018-01-21 15:46] LABS: AMMONIA 17 umol/l (9-30)
[2018-01-21] MEDS: QUETIAPINE 25 MG TAB PO (20:48)
[2018-01-21] MEDS: ATORVASTATIN 20 MG TAB PO (21:44)
[2018-01-22] MEDS: DIPHENHYDRAMINE 50 MG INJ IV (00:37)
[2018-01-22] MEDS: ACCU-CHEK XX (02:00)
[2018-01-22] MEDS: LEVALBUTEROL (NEB) 0.63 MG/3 ML AMP HHN ×4 (02:19→20:11)
[2018-01-22] MEDS: IPRATROPIUM (NEB) 0.5 MG/2.5 ML AMP HHN ×4 (02:19→20:11)
[2018-01-22 06:43] LABS: ALANINE AMINOTRANSFERASE 17 IU/L (13-69); ALBUMIN 4.6 g/dl (3.3-4.9); ALKALINE PHOSPHATASE 136 IU/L (42-121); ANION GAP 23 (8-16); ASPARTATE AMINO TRANSFERASE 58 IU/L (15-46); BILIRUBIN,INDIRECT 0.7 mg/dl (0-1.1); BILIRUBIN,TOTAL 0.7 mg/dl (0.2-1.3); BLOOD UREA NITROGEN 31 mg/dl (7-20); CALCIUM 10.1 mg/dl (8.4-10.2); CARBON DIOXIDE 28 mmol/L (21-31); CHLORIDE 99 mmol/L (97-110); CREATININE 1.23 mg/dl (0.61-1.24); GLUCOSE 111 mg/dl (70-220); MAGNESIUM 1.8 mg/dl (1.7-2.5); POTASSIUM 4.1 mmol/L (3.5-5.1); SODIUM 146 mmol/L (135-144); TOTAL PROTEIN 9.2 g/dl (6.1-8.1)
[2018-01-22] MEDS ORDERED: HALOPERIDOL 5 MG INJ IM (07:00)
[2018-01-22] MEDS: INSULIN ASPART [NOVOLOG] 3 ML PEN SC ×4 (08:08→21:00)
[2018-01-22] MEDS: INSULIN GLARGINE [LANtus] 3 ML PEN SC (08:16)
[2018-01-22] MEDS: LACTULOSE 30ML CUP PO ×2 (08:23→21:07)
[2018-01-22] MEDS: SPIRONOLACTONE 25 MG TAB PO (08:24)
[2018-01-22] MEDS: METOPROLOL 25 MG TAB PO ×2 (08:24→21:21)
[2018-01-22] MEDS: APIXABAN 5 MG TABLET PO ×2 (08:24→21:08)
[2018-01-22] MEDS: FUROSEMIDE 20 MG TAB PO (08:24)
[2018-01-22] MEDS: FAMOTIDINE 20 MG INJ IV (08:25)
[2018-01-22] MEDS: LISINOPRIL 5 MG TAB PO (10:10)
[2018-01-22] MEDS ORDERED: LORAZEPAM 2 MG INJ IV (12:00)
[2018-01-22 12:32] LABS: ALANINE AMINOTRANSFERASE 15 IU/L (13-69); ALBUMIN 4.4 g/dl (3.3-4.9); ALBUMIN/GLOBULIN RATIO 1.07; ALKALINE PHOSPHATASE 116 IU/L (42-121); ANION GAP 18 (8-16); ASPARTATE AMINO TRANSFERASE 52 IU/L (15-46); BILIRUBIN,INDIRECT 0.6 mg/dl (0-1.1); BILIRUBIN,TOTAL 0.6 mg/dl (0.2-1.3); BLOOD UREA NITROGEN 32 mg/dl (7-20); CARBON DIOXIDE 30 mmol/L (21-31); CHLORIDE 98 mmol/L (97-110); GLUCOSE 117 mg/dl (70-220); INR 1.32; POTASSIUM 3.9 mmol/L (3.5-5.1); PROTIME 16.6 Sec (11.9-14.9); PT RATIO 1.3; SODIUM 142 mmol/L (135-144); TOTAL PROTEIN 8.5 g/dl (6.1-8.1)
[2018-01-22] MEDS: QUETIAPINE 25 MG TAB PO (21:07)
[2018-01-22] MEDS: ATORVASTATIN 20 MG TAB PO (21:08)
[2018-01-23] MEDS: LEVALBUTEROL (NEB) 0.63 MG/3 ML AMP HHN ×3 (01:11→13:55)
[2018-01-23] MEDS: IPRATROPIUM (NEB) 0.5 MG/2.5 ML AMP HHN ×3 (01:11→13:55)
[2018-01-23] MEDS: ACCU-CHEK XX (02:00)
[2018-01-23 07:24] LABS: ALANINE AMINOTRANSFERASE 16 IU/L (13-69); ALBUMIN 4.2 g/dl (3.3-4.9); ALBUMIN/GLOBULIN RATIO 1.02; ALKALINE PHOSPHATASE 117 IU/L (42-121); ANION GAP 19 (8-16); ASPARTATE AMINO TRANSFERASE 45 IU/L (15-46); BILIRUBIN,INDIRECT 0.4 mg/dl (0-1.1); BILIRUBIN,TOTAL 0.4 mg/dl (0.2-1.3); BLOOD UREA NITROGEN 30 mg/dl (7-20); CALCIUM 9.7 mg/dl (8.4-10.2); CARBON DIOXIDE 26 mmol/L (21-31); CHLORIDE 101 mmol/L (97-110); CREATININE 1.04 mg/dl (0.61-1.24); GLUCOSE 109 mg/dl (70-220); MAGNESIUM 1.8 mg/dl (1.7-2.5); SODIUM 142 mmol/L (135-144); TOTAL PROTEIN 8.3 g/dl (6.1-8.1)
[2018-01-23] MEDS: INSULIN ASPART [NOVOLOG] 3 ML PEN SC ×3 (08:15→17:16)
[2018-01-23] MEDS: INSULIN GLARGINE [LANtus] 3 ML PEN SC (08:26)
[2018-01-23] MEDS: SPIRONOLACTONE 25 MG TAB PO (09:33)
[2018-01-23] MEDS: APIXABAN 5 MG TABLET PO (09:33)
[2018-01-23] MEDS: LACTULOSE 30ML CUP PO (09:33)
[2018-01-23] MEDS: FAMOTIDINE 20 MG INJ IV (09:33)
[2018-01-23] MEDS: FUROSEMIDE 20 MG TAB PO (09:35)
[2018-01-23] MEDS: METOPROLOL 25 MG TAB PO (09:35)
[2018-01-23] MEDS: LISINOPRIL 5 MG TAB PO (09:35)
== END 2018-01-23 19:05 | DRG 432 ==
LOC: MS4 01-12 04:49 → TEL 01-17 10:02 → MS3 20:35 → E/R 11:45 → MS2 01-21 22:03 → MS4 01-12 12:03 → ICU 01-12 19:38
PROC: 0BH17EZ Insertion of Endotracheal Airway into Trachea, Via Natural or Artificial Opening (ICD-10-PCS; principal; 2018-01-12)
PROC: 5A1945Z Respiratory Ventilation, 24-96 Consecutive Hours (ICD-10-PCS; 2018-01-12)
DX: K70.31 Alcoholic cirrhosis of liver with ascites (principal); K72.91 Hepatic failure, unspecified with coma; J96.01 Acute respiratory failure with hypoxia; E87.4 Mixed disorder of acid-base balance; I50.41 Acute combined systolic (congestive) and diastolic (congestive) heart failure; N17.9 Acute kidney failure, unspecified; I95.9 Hypotension, unspecified; E72.20 Disorder of urea cycle metabolism, unspecified; E87.2 Acidosis; E87.0 Hyperosmolality and hypernatremia; I11.0 Hypertensive heart disease with heart failure; I42.9 Cardiomyopathy, unspecified; I48.92 Unspecified atrial flutter; R65.10 Systemic inflammatory response syndrome (SIRS) of non-infectious origin without acute organ dysfunction; I45.2 Bifascicular block; I48.91 Unspecified atrial fibrillation; I49.5 Sick sinus syndrome; E11.9 Type 2 diabetes mellitus without complications; E78.5 Hyperlipidemia, unspecified; K80.20 Calculus of gallbladder without cholecystitis without obstruction; N28.1 Cyst of kidney, acquired; R31.9 Hematuria, unspecified; Z78.1 Physical restraint status
CPT/HCPCS: 31500; 36415; 36600; 71045; 74176; 76705; 80048; 80053; 80061; 80069; 81001; 82140; 82550; 82553; 82803; 82962; 83036; 83605; 83690; 83735; 83880; 84100; 84443; 84484; 85025; 85610; 85730; 87040; 87070; 87081; 89220; 92610; 93005; 93306; 94002; 94003; 94640; 94664; 94770; 96365; 96366; 96375; 97116; 97161; 97530; 99291-25

== ENCOUNTER 2018-03-25 15:12 | Inpatient (IN) | payer OTHER ==
[2018-03-25] MEDS: SOD CHLORIDE 0.9% 1,000 ML IV (19:30)
[2018-03-25] MEDS: morphine 2 MG INJ IV (19:31)
[2018-03-25] MEDS: ONDANSETRON 4 MG INJ IV (19:31)
[2018-03-25] MEDS: DILTIAZEM 50 MG INJ IV (19:47)
[2018-03-25 19:57] LABS: ADD MAN DIFF? NO
[2018-03-25 20:01] LABS: WHITE BLOOD COUNT 7.4 10^3/ul (4.8-10.8)
[2018-03-25 20:01] LABS: BASOPHILS % 0.5 % (0.0-2.0); EOSINOPHILS # 0.2 10^3/ul (0.0-0.5); HEMATOCRIT 41.3 % (42.0-52.0); HEMOGLOBIN 13.2 g/dl (14.0-18.0); LYMPHOCYTES # 2.4 10^3/ul (0.8-2.9); LYMPHOCYTES % 32.7 % (15.0-51.0); MEAN CORPUSCULAR HEMOGLOBIN 27.8 pg (29.0-33.0); MEAN CORPUSCULAR VOLUME 86.9 fl (82.0-101.0); MEAN PLATELET VOLUME 9.6 fl (7.4-10.4); MONOCYTE # 0.7 10^3/ul (0.3-0.9); MONOCYTES % 9.6 % (0.0-11.0); NEUTROPHILS % 54.8 % (39.0-77.0); PLATELET COUNT 193 10^3/UL (140-415); RED BLOOD COUNT 4.75 10^6/ul (4.70-6.10); RED CELL DISTRIBUTION WIDTH 17.5 % (11.5-14.5)
[2018-03-25 20:17] LABS: ALBUMIN 4.2 g/dl (3.3-4.9); ALBUMIN/GLOBULIN RATIO 1.13; ALKALINE PHOSPHATASE 80 IU/L (42-121); ANION GAP 16 (8-16); ASPARTATE AMINO TRANSFERASE 27 IU/L (15-46); BILIRUBIN,INDIRECT 0.4 mg/dl (0-1.1); BILIRUBIN,TOTAL 0.4 mg/dl (0.2-1.3); BLOOD UREA NITROGEN 20 mg/dl (7-20); CALCIUM 9.1 mg/dl (8.4-10.2); CARBON DIOXIDE 32 mmol/L (21-31); CHLORIDE 99 mmol/L (97-110); CREATININE 0.84 mg/dl (0.61-1.24); GLUCOSE 102 mg/dl (70-220); LIPASE 511 U/L (23-300); POTASSIUM 3.6 mmol/L (3.5-5.1); SODIUM 143 mmol/L (135-144); TOTAL PROTEIN 7.9 g/dl (6.1-8.1)
[2018-03-25 20:19] LABS: ALANINE AMINOTRANSFERASE < 6 IU/L (13-69)
[2018-03-25 20:28] LABS: B-TYPE NATRIURETIC PEPTIDE 4290 PG/ML (0-125); TROPONIN-I < 0.012 ng/ml (0.00-0.12)
[2018-03-25 20:53] LABS: INR 1.11; PROTIME 14.5 Sec (11.9-14.9); PT RATIO 1.1
[2018-03-25 20:54] LABS: PARTIAL THROMBOPLASTIN TIME 34.3 Sec (25.0-35.0)
[2018-03-25 21:05] LABS: ADD UMIC NO; UR ASCORBIC ACID NEGATIVE (NEGATIVE); UR BILIRUBIN (Dip) NEGATIVE (NEGATIVE); UR BLOOD (Dip) NEGATIVE (NEGATIVE); UR CLARITY CLEAR (CLEAR); UR COLOR YELLOW (YELLOW); UR GLUCOSE (Dip) NEGATIVE (NEGATIVE); UR KETONES (Dip) NEGATIVE (NEGATIVE); UR LEUKOCYTE ESTERASE (Dip) NEGATIVE Leu/ul (NEGATIVE); UR NITRITE (Dip) NEGATIVE (NEGATIVE); UR SPECIFIC GRAVITY (Dip) 1.012 (1.003-1.030); UR TOTAL PROTEIN (Dip) NEGATIVE (NEGATIVE); UR UROBILINOGEN (Dip) 1+ mg/dL (NEGATIVE)
[2018-03-26] MEDS ORDERED: ZOLPIDEM 5 MG TAB PO (01:30)
[2018-03-26] MEDS ORDERED: NACL 0.9% 3 ML SYG IV (01:30)
[2018-03-26] MEDS ORDERED: ACETAMINOPHEN 325 MG TAB PO (01:30)
[2018-03-26] MEDS ORDERED: ONDANSETRON 4 MG INJ IV (01:30)
[2018-03-26] MEDS: DEXTROSE 5%-0.45% NACL 1,000 ML IV (01:47)
[2018-03-26] MEDS ORDERED: GLUCOSE GEL 15 GRAM TUBE BUCCAL (03:30)
[2018-03-26] MEDS ORDERED: DEXTROSE 50% 50 ML SYRINGE IV ×2 (03:30)
[2018-03-26] MEDS ORDERED: GLUCAGON 1 MG INJ IM (03:30)
[2018-03-26] MEDS ORDERED: GLUCOSE GEL 15 GRAM TUBE PO ×2 (03:30)
[2018-03-26] MEDS: PANTOPRAZOLE (EC) 40 MG TAB PO (06:13)
[2018-03-26 06:34] LABS: AMMONIA 29 umol/l (9-30)
[2018-03-26] MEDS: morphine 2 MG INJ IV (07:15)
[2018-03-26] MEDS: INSULIN GLARGINE [LANtus] 3 ML PEN SC (08:00)
[2018-03-26] MEDS: FUROSEMIDE 20 MG TAB PO (09:46)
[2018-03-26] MEDS: LACTULOSE 30ML CUP PO ×2 (09:46→20:52)
[2018-03-26] MEDS: METOPROLOL 25 MG TAB PO (09:47)
[2018-03-26] MEDS: SPIRONOLACTONE 25 MG TAB PO (09:47)
[2018-03-26] MEDS: APIXABAN 5 MG TABLET PO ×2 (09:47→20:53)
[2018-03-26] MEDS: LISINOPRIL 5 MG TAB PO (09:47)
[2018-03-26] MEDS: PIPER-TAZO 3.375 GM IV (PMX) 100 ML IVPB ×2 (09:48→13:23)
[2018-03-26] MEDS: AMIODARONE 150MG/D5W BOLUS 100 ML IV (10:27)
[2018-03-26 10:34] LABS: AMPHETAMINE/METHAMPHETAMINE Negative (NEGATIVE); BARBITURATES Negative (NEGATIVE); BENZODIAZEPINES Negative (NEGATIVE); CANNABINOIDS Negative (NEGATIVE); COCAINE Negative (NEGATIVE); OPIATES Positive (NEGATIVE)
[2018-03-26] MEDS: AMIODARONE 900 MG in DEXTROSE 5% 482 ML IV (10:53)
[2018-03-26] MEDS: INSULIN ASPART [NOVOLOG] 3 ML PEN SC ×3 (11:36→20:56)
[2018-03-26 12:13] LABS: ETHANOL < 10.0 mg/dl
[2018-03-26] MEDS: LIDOCAINE/MYLANTA 40 ML BTL PO (14:27)
[2018-03-26] MEDS: DIGOXIN 500 MCG INJ IV (17:06)
[2018-03-26] MEDS: HYDROCODONE/APAP (5/325) TAB PO (17:06)
[2018-03-26] MEDS: ATORVASTATIN 20 MG TAB PO (20:52)
[2018-03-26] MEDS: METOPROLOL (XL) 25 MG TAB PO (20:53)
[2018-03-27] MEDS: PANTOPRAZOLE (EC) 40 MG TAB PO (06:04)
[2018-03-27 06:12] LABS: ADD MAN DIFF? NO
[2018-03-27 06:17] LABS: BASOPHIL # 0.1 10^3/ul (0.0-0.1); BASOPHILS % 0.5 % (0.0-2.0); EOSINOPHILS % 0.4 % (0.0-7.0); HEMATOCRIT 41.1 % (42.0-52.0); HEMOGLOBIN 13.2 g/dl (14.0-18.0); LYMPHOCYTES # 2.5 10^3/ul (0.8-2.9); LYMPHOCYTES % 26.6 % (15.0-51.0); MEAN CORPUSCULAR HEMOGLOBIN 28.1 pg (29.0-33.0); MEAN CORPUSCULAR HGB CONC 32.1 g/dl (32.0-37.0); MEAN CORPUSCULAR VOLUME 87.4 fl (82.0-101.0); MONOCYTE # 1.1 10^3/ul (0.3-0.9); MONOCYTES % 11.6 % (0.0-11.0); NEUTROPHIL # 5.7 10^3/ul (1.6-7.5); NEUTROPHILS % 60.6 % (39.0-77.0); PLATELET COUNT 179 10^3/UL (140-415); RED CELL DISTRIBUTION WIDTH 17.5 % (11.5-14.5)
[2018-03-27 06:17] LABS: WHITE BLOOD COUNT 9.3 10^3/ul (4.8-10.8)
[2018-03-27 06:34] LABS: HEMOGLOBIN A1C 6.3 % (0-5.9)
[2018-03-27 06:44] LABS: ALANINE AMINOTRANSFERASE 13 IU/L (13-69); ALBUMIN 3.6 g/dl (3.3-4.9); ALBUMIN/GLOBULIN RATIO 1.09; ALKALINE PHOSPHATASE 74 IU/L (42-121); ANION GAP 16 (8-16); ASPARTATE AMINO TRANSFERASE 25 IU/L (15-46); BILIRUBIN,INDIRECT 0.7 mg/dl (0-1.1); BILIRUBIN,TOTAL 0.7 mg/dl (0.2-1.3); BLOOD UREA NITROGEN 21 mg/dl (7-20); CALCIUM 8.8 mg/dl (8.4-10.2); CARBON DIOXIDE 28 mmol/L (21-31); CHLORIDE 102 mmol/L (97-110); CREATININE 1.04 mg/dl (0.61-1.24); GLUCOSE 108 mg/dl (70-220); POTASSIUM 4.3 mmol/L (3.5-5.1); SODIUM 142 mmol/L (135-144); TOTAL PROTEIN 6.9 g/dl (6.1-8.1)
[2018-03-27 06:49] LABS: DIGOXIN < 0.4 ng/ml (1.0-2.0)
[2018-03-27 06:51] LABS: ANION GAP 14 (8-16); BLOOD UREA NITROGEN 21 mg/dl (7-20); CALCIUM 8.9 mg/dl (8.4-10.2); CARBON DIOXIDE 29 mmol/L (21-31); CHLORIDE 106 mmol/L (97-110); GLUCOSE 108 mg/dl (70-220); MAGNESIUM 1.5 mg/dl (1.7-2.5); PHOSPHORUS 4.3 mg/dl (2.5-4.9); POTASSIUM 4.5 mmol/L (3.5-5.1); SODIUM 144 mmol/L (135-144)
[2018-03-27 06:53] LABS: B-TYPE NATRIURETIC PEPTIDE 6370 PG/ML (0-125)
[2018-03-27 07:03] LABS: FREE T4 (FREE THYROXINE) 1.37 ng/dl (0.78-2.44)
[2018-03-27] MEDS: INSULIN ASPART [NOVOLOG] 3 ML PEN SC ×4 (07:55→20:39)
[2018-03-27] MEDS: FUROSEMIDE 20 MG TAB PO (08:14)
[2018-03-27] MEDS: LACTULOSE 30ML CUP PO ×2 (08:14→20:38)
[2018-03-27] MEDS: SPIRONOLACTONE 25 MG TAB PO (08:15)
[2018-03-27] MEDS: APIXABAN 5 MG TABLET PO ×2 (08:15→20:38)
[2018-03-27] MEDS: METOPROLOL (XL) 25 MG TAB PO ×2 (08:16→20:39)
[2018-03-27] MEDS: LISINOPRIL 5 MG TAB PO (08:16)
[2018-03-27] MEDS: INSULIN GLARGINE [LANtus] 3 ML PEN SC (09:47)
[2018-03-27] MEDS: ATORVASTATIN 20 MG TAB PO (20:38)
[2018-03-28] MEDS: PANTOPRAZOLE (EC) 40 MG TAB PO (06:15)
[2018-03-28 06:44] LABS: ADD MAN DIFF? NO
[2018-03-28 06:56] LABS: BASOPHILS % 0.4 % (0.0-2.0); EOSINOPHILS # 0.1 10^3/ul (0.0-0.5); EOSINOPHILS % 0.7 % (0.0-7.0); HEMATOCRIT 39.8 % (42.0-52.0); HEMOGLOBIN 12.9 g/dl (14.0-18.0); LYMPHOCYTES # 1.9 10^3/ul (0.8-2.9); LYMPHOCYTES % 21.6 % (15.0-51.0); MEAN CORPUSCULAR HEMOGLOBIN 28.1 pg (29.0-33.0); MEAN CORPUSCULAR HGB CONC 32.4 g/dl (32.0-37.0); MEAN CORPUSCULAR VOLUME 86.7 fl (82.0-101.0); MEAN PLATELET VOLUME 9.5 fl (7.4-10.4); MONOCYTE # 0.9 10^3/ul (0.3-0.9); MONOCYTES % 10.8 % (0.0-11.0); NEUTROPHIL # 5.7 10^3/ul (1.6-7.5); PLATELET COUNT 182 10^3/UL (140-415); RED BLOOD COUNT 4.59 10^6/ul (4.70-6.10); RED CELL DISTRIBUTION WIDTH 17.5 % (11.5-14.5)
[2018-03-28 06:56] LABS: WHITE BLOOD COUNT 8.6 10^3/ul (4.8-10.8)
[2018-03-28 07:11] LABS: ANION GAP 14 (8-16); BLOOD UREA NITROGEN 15 mg/dl (7-20); CARBON DIOXIDE 29 mmol/L (21-31); CHLORIDE 105 mmol/L (97-110); CREATININE 0.82 mg/dl (0.61-1.24); GLUCOSE 137 mg/dl (70-220); MAGNESIUM 1.5 mg/dl (1.7-2.5); PHOSPHORUS 3.2 mg/dl (2.5-4.9); SODIUM 144 mmol/L (135-144)
[2018-03-28] MEDS: INSULIN ASPART [NOVOLOG] 3 ML PEN SC ×4 (08:22→20:23)
[2018-03-28] MEDS: INSULIN GLARGINE [LANtus] 3 ML PEN SC (08:25)
[2018-03-28] MEDS: METOPROLOL (XL) 25 MG TAB PO ×2 (08:26→20:25)
[2018-03-28] MEDS: LACTULOSE 30ML CUP PO ×2 (08:26→20:24)
[2018-03-28] MEDS: APIXABAN 5 MG TABLET PO ×2 (08:26→20:24)
[2018-03-28] MEDS: SPIRONOLACTONE 25 MG TAB PO (08:27)
[2018-03-28] MEDS: FUROSEMIDE 20 MG TAB PO (08:27)
[2018-03-28] MEDS: LISINOPRIL 5 MG TAB PO (08:27)
[2018-03-28] MEDS: MAGNESIUM SULFATE 2 GM/50 ML 50 ML IVPB (15:33)
[2018-03-28] MEDS: ATORVASTATIN 20 MG TAB PO (20:24)
[2018-03-28] MEDS: HYDROCODONE/APAP (5/325) TAB PO (20:25)
[2018-03-29] MEDS: PANTOPRAZOLE (EC) 40 MG TAB PO (06:51)
[2018-03-29 07:18] LABS: ADD MAN DIFF? NO
[2018-03-29 07:28] LABS: BASOPHIL # 0.1 10^3/ul (0.0-0.1); BASOPHILS % 0.8 % (0.0-2.0); EOSINOPHILS # 0.2 10^3/ul (0.0-0.5); EOSINOPHILS % 3.4 % (0.0-7.0); HEMOGLOBIN 12.2 g/dl (14.0-18.0); LYMPHOCYTES # 2.4 10^3/ul (0.8-2.9); MEAN CORPUSCULAR HEMOGLOBIN 27.4 pg (29.0-33.0); MEAN CORPUSCULAR HGB CONC 31.3 g/dl (32.0-37.0); MEAN CORPUSCULAR VOLUME 87.4 fl (82.0-101.0); MEAN PLATELET VOLUME 9.5 fl (7.4-10.4); MONOCYTE # 0.9 10^3/ul (0.3-0.9); MONOCYTES % 13.7 % (0.0-11.0); NEUTROPHILS % 45.8 % (39.0-77.0); PLATELET COUNT 196 10^3/UL (140-415); RED BLOOD COUNT 4.46 10^6/ul (4.70-6.10); RED CELL DISTRIBUTION WIDTH 17.4 % (11.5-14.5)
[2018-03-29 07:28] LABS: WHITE BLOOD COUNT 6.6 10^3/ul (4.8-10.8)
[2018-03-29 07:51] LABS: DIGOXIN < 0.4 ng/ml (1.0-2.0)
[2018-03-29 07:54] LABS: ALBUMIN 3.6 g/dl (3.3-4.9); ANION GAP 16 (8-16); BLOOD UREA NITROGEN 13 mg/dl (7-20); CALCIUM 9.1 mg/dl (8.4-10.2); CARBON DIOXIDE 34 mmol/L (21-31); CHLORIDE 98 mmol/L (97-110); CREATININE 0.87 mg/dl (0.61-1.24); GLUCOSE 87 mg/dl (70-220); LIPASE 91 U/L (23-300); MAGNESIUM 1.6 mg/dl (1.7-2.5); PHOSPHORUS 4.4 mg/dl (2.5-4.9); POTASSIUM 3.8 mmol/L (3.5-5.1); SODIUM 144 mmol/L (135-144)
[2018-03-29] MEDS: INSULIN ASPART [NOVOLOG] 3 ML PEN SC ×3 (07:55→17:32)
[2018-03-29] MEDS: INSULIN GLARGINE [LANtus] 3 ML PEN SC (08:30)
[2018-03-29] MEDS: METOPROLOL (XL) 25 MG TAB PO (08:34)
[2018-03-29] MEDS: FUROSEMIDE 20 MG TAB PO (08:34)
[2018-03-29] MEDS: APIXABAN 5 MG TABLET PO (08:35)
[2018-03-29] MEDS: LACTULOSE 30ML CUP PO (08:35)
[2018-03-29] MEDS: LISINOPRIL 5 MG TAB PO (08:35)
[2018-03-29] MEDS: SPIRONOLACTONE 25 MG TAB PO (08:35)
[2018-03-29] MEDS: MAGNESIUM SULFATE 2 GM/50 ML 50 ML IVPB (08:36)
== END 2018-03-29 18:17 | disposition home or self-care (01) | DRG 438 ==
LOC: E/R 15:12 → TEL 22:40
DX: K85.90 Acute pancreatitis without necrosis or infection, unspecified (principal); I50.43 Acute on chronic combined systolic (congestive) and diastolic (congestive) heart failure; I42.9 Cardiomyopathy, unspecified; K70.30 Alcoholic cirrhosis of liver without ascites; I48.2 Chronic atrial fibrillation; I11.0 Hypertensive heart disease with heart failure; E11.9 Type 2 diabetes mellitus without complications; K81.1 Chronic cholecystitis; F10.20 Alcohol dependence, uncomplicated; Y90.0 Blood alcohol level of less than 20 mg/100 ml; K29.70 Gastritis, unspecified, without bleeding; K21.9 Gastro-esophageal reflux disease without esophagitis; E78.5 Hyperlipidemia, unspecified; Z79.4 Long term (current) use of insulin; Z79.02 Long term (current) use of antithrombotics/antiplatelets
CPT/HCPCS: 71045; 74176; 76705; 80048; 80053; 80069; 80162; 80306; 80307; 81003; 82140; 82962; 83036; 83690; 83735; 83880; 84100; 84439; 84484; 85025; 85610; 85730; 93005